=== PATIENT | female | born 1955 | race Two or more races ===

== ENCOUNTER 2019-10-06 15:27 | Emergency (ER) | payer MEDICAID ==
[~2019-10-06] VITALS: Ht 149.9 cm; Wt 54.9 kg
[~2019-10-06 15:27] MED LIST: MECL25CH20 PO; METROPROLOL PO; OMEPRAZOL PO; TOPI25TA84 PO; [UNRECOGNIZED DRUG - CODE] PO
[2019-10-06] MEDS ORDERED: ASPirin 81 mg TAB PO ONE (16:00)
[2019-10-06 16:17] LABS: Basophils # (auto) 0 uL; Basophils % (auto) 0.7 % (0.0-2.0); Eosinophils # (auto) 0.1 uL; Eosinophils % (auto) 1.4 % (0.0-7.0); Hematocrit 41.3 % (36.0-46.0); Hemoglobin 14.2 g/dL (12.2-16.2); Lymphocytes # (auto) 1.2 uL; Lymphocytes % (auto) 16.9 % (10.0-50.0); Mean Corpuscular Hemoglobin 30.7 pg (28.0-32.0); Mean Corpuscular Hgb Conc. 34.4 g/dL (32.0-36.0); Mean Corpuscular Volume 89.2 fL (80.0-100.0); Monocytes # (auto) 0.6 uL; Monocytes % (auto) 8.2 % (0.0-12.0); Neutrophils # (auto) 5.2 uL; Neutrophils % (auto) 72.8 % (37.0-80.0); Platelet Count (auto) 214 10^3/uL (140-450); Red Blood Cells 4.63 10^6/uL (4.0-5.20); Red Cell Distribution Width 12.2 % (11.8-14.3); White Blood Cell 7.1 10^3/uL (4.4-10.8)
[2019-10-06 16:39] LABS: Albumin 3.8 g/dL (3.4-5.0); Anion Gap 5 (5-15); Blood Urea Nitrogen 16 mg/dL (7-18); Calcium 7.9 mg/dL (8.5-10.1); Carbon Dioxide 26 mmol/L (21-32); Chloride 114 mmol/L (98-107); Glucose 112 mg/dL (74-106); Potassium 3.6 mmol/L (3.5-5.1); Sodium 145 mmol/L (136-145)
[2019-10-06 16:46] LABS: Alanine Aminotransferase 29 U/L (13-56); Alkaline Phosphatase 93 U/L (45-117); Aspartate Aminotransferase 19 U/L (15-37); Bilirubin, Total 0.6 mg/dL (0.2-1.0); GFR African American 120 mL/min; GFR Non-African American 99 mL/min; Total Protein 7.2 g/dL (6.4-8.2)
[2019-10-06 18:37] VITALS: BP 137/73
== END 2019-10-06 18:47 | disposition home or self-care (01) ==
LOC: ER 15:27
DX: F41.9 Anxiety disorder, unspecified (principal); E78.5 Hyperlipidemia, unspecified; I10 Essential (primary) hypertension; Z86.73 Personal history of transient ischemic attack (TIA), and cerebral infarction without residual deficits; Z88.6 Allergy status to analgesic agent
CPT/HCPCS: 36415; 71046; 80053; 84484; 85025

== ENCOUNTER 2019-11-24 15:20 | Emergency (ER) | payer MEDICAID ==
[~2019-11-24] VITALS: Ht 149.9 cm; Wt 59.0 kg
[2019-11-24] MEDS ORDERED: KETOROLAC TROMETH 60MG/2ML VIAL IM ONE (21:15)
[2019-11-24] MEDS ORDERED: BACLOFEN 10 MG TAB PO ONE (21:15)
[2019-11-24 22:29] VITALS: BP 128/60
== END 2019-11-24 22:31 | disposition home or self-care (01) ==
LOC: ER 15:20
DX: M54.42 Lumbago with sciatica, left side (principal); M54.41 Lumbago with sciatica, right side; M62.830 Muscle spasm of back; E78.5 Hyperlipidemia, unspecified; I10 Essential (primary) hypertension; M54.2 Cervicalgia
CPT/HCPCS: 96372; 99283; J1885

== ENCOUNTER 2021-02-10 19:08 | Emergency (ER) | payer MEDICAID ==
[~2021-02-10] VITALS: Ht 149.9 cm; Wt 63.5 kg
[2021-02-10 19:11] VITALS: BP 137/61
[2021-02-10 20:53] LABS: Basophils # (auto) 0 10 ^3/uL (0-0.2); Basophils % (auto) 0.3 % (0.0-2.0); Eosinophils # (auto) 0.3 10 ^3/uL (0-0.8); Eosinophils % (auto) 4.3 % (0.0-7.0); Hematocrit 40.1 % (36.0-46.0); Hemoglobin 13.7 g/dL (12.2-16.2); Lymphocytes # (auto) 1.4 10 ^3/uL (0.4-5.4); Mean Corpuscular Hemoglobin 31.2 pg (28.0-32.0); Mean Corpuscular Hgb Conc. 34.2 g/dL (32.0-36.0); Monocytes # (auto) 0.5 10 ^3/uL (0-1.3); Monocytes % (auto) 6.5 % (0.0-12.0); Neutrophils # (auto) 5.4 10 ^3/uL (1.6-8.6); Neutrophils % (auto) 70.9 % (37.0-80.0); Nucleated Red Blood Cells % 0.1 %; Platelet Count (auto) 247 10^3/uL (140-450); Red Cell Distribution Width 12.7 % (11.8-14.3); White Blood Cell 7.6 10^3/uL (4.4-10.8)
[2021-02-10 21:06] LABS: Albumin 3.3 g/dL (3.4-5.0); BUN/Creatinine Ratio 34.8; Calcium 7.9 mg/dL (8.5-10.1); Magnesium 2.6 mg/dL (1.6-2.6); Potassium 3.3 mmol/L (3.5-5.1)
[2021-02-10 21:08] LABS: INR 0.97 (0.9-1.15); Partial Thromboplastin Time 23.9 sec (23.0-31.2)
[2021-02-10 21:09] LABS: Bilirubin, Total 0.5 mg/dL (0.2-1.0); Total Protein 6.5 g/dL (6.4-8.2)
[2021-02-11] MEDS ORDERED: IOHEXOL 350 MG/ML 100ML IJ ONE (00:16)
== END 2021-02-11 01:29 | disposition home or self-care (01) ==
LOC: ER 19:08
DX: N39.0 Urinary tract infection, site not specified (principal); R60.0 Localized edema; E78.5 Hyperlipidemia, unspecified; I10 Essential (primary) hypertension; Z20.822 Contact with and (suspected) exposure to COVID-19; Z88.6 Allergy status to analgesic agent
CPT/HCPCS: 36415; 71260; 74177; 80053; 82150; 83605; 83690; 83735; 85025; 85379; 85610; 85730; 87426; 99285; Q9967